=== PATIENT | male | born 1990 | race Native Hawaiian/Other Pacific Islander ===

== ENCOUNTER 2021-02-25 22:22 | Inpatient (IN) | payer OTHER ==
[~2021-02-25] VITALS: Ht 170.2 cm; Wt 90.7 kg
[2021-02-25] MEDS ORDERED: ACETAMINOPHEN 500 MG TAB PO ONE (23:15)
[2021-02-25 23:28] LABS: Basophils # (auto) 0 10 ^3/uL (0-0.2); Basophils % (auto) 0.5 % (0.0-2.0); Eosinophils # (auto) 0 10 ^3/uL (0-0.8); Eosinophils % (auto) 0.9 % (0.0-7.0); Hemoglobin 16.4 g/dL (13.5-17.5); Lymphocytes # (auto) 0.8 10 ^3/uL (0.4-5.4); Lymphocytes % (auto) 18.1 % (10.0-50.0); Mean Corpuscular Hemoglobin 31.7 pg (28.0-32.0); Mean Corpuscular Hgb Conc. 35.7 g/dL (32.0-36.0); Mean Corpuscular Volume 88.7 fL (80.0-100.0); Monocytes # (auto) 0.3 10 ^3/uL (0-1.3); Monocytes % (auto) 7.1 % (0.0-12.0); Neutrophils # (auto) 3.2 10 ^3/uL (1.6-8.6); Neutrophils % (auto) 73.4 % (37.0-80.0); Nucleated Red Blood Cells % 0.1 %; Platelet Count (auto) 166 10^3/uL (140-450); Red Blood Cells 5.19 10^6/uL (4.5-5.90); Red Cell Distribution Width 14.2 % (11.8-14.3); White Blood Cell 4.3 10^3/uL (4.4-10.8)
[2021-02-25 23:44] LABS: INR 1.02 (0.9-1.15); Partial Thromboplastin Time 36.2 sec (23.0-31.2)
[2021-02-25 23:48] LABS: Chloride 103 mmol/L (98-107); Potassium 3.6 mmol/L (3.5-5.1); Sodium 135 mmol/L (136-145)
[2021-02-25 23:53] LABS: Alanine Aminotransferase 65 U/L (16-61); Albumin 3.8 g/dL (3.4-5.0); Anion Gap 9 (5-15); Aspartate Aminotransferase 46 U/L (15-37); BUN/Creatinine Ratio 8.1; Blood Urea Nitrogen 9 mg/dL (7-18); Calcium 8.1 mg/dL (8.5-10.1); Carbon Dioxide 23 mmol/L (21-32); GFR African American 99 mL/min; GFR Non-African American 82 mL/min; Glucose 111 mg/dL (74-106)
[2021-02-25 23:57] LABS: Alkaline Phosphatase 42 U/L (45-117); Bilirubin, Total 0.4 mg/dL (0.2-1.0); Total Protein 7.9 g/dL (6.4-8.2)
[2021-02-26] MEDS ORDERED: ONDANSETRON HCL 4 MG/2 ML VIAL IV ONE (00:15)
[2021-02-26] MEDS ORDERED: NITROGLYCERIN 0.4 MG SL TAB SL PRN (02:30)
[2021-02-26] MEDS ORDERED: TEMAZEPAM 15 MG CAP PO PRN (02:30)
[2021-02-26] MEDS ORDERED: ACETAMINOPHEN 500 MG TAB PO PRN (02:30)
[2021-02-26] MEDS ORDERED: ALBUTEROL SULF HFA 90MCG INH 200DOSE IN PRN (02:30)
[2021-02-26] MEDS ORDERED: MORPHINE SULF INJ 2 MG/ML SYRINGE 1ML IV PRN (02:30)
[2021-02-26] MEDS ORDERED: ONDANSETRON HCL 4 MG/2 ML VIAL IV PRN (02:30)
[2021-02-26] MEDS ORDERED: AZITHROMYCIN 500MG/ 250ML 250 ML IV SCH (03:00)
[2021-02-26 03:02] VITALS: BP 127/78
[2021-02-26] MEDS: DexAMETHasone SOD PHOS 10MG/1ML VIAL INJ IV SCH (03:06)
[2021-02-26 04:17] LABS: CRP High Sensitivity 1.44 mg/dL (< 0.3)
[2021-02-26] MEDS: IPRATROPIUM BROMIDE HFA AER IN SCH ×5 (06:00→22:18)
[2021-02-26] MEDS: ZINC SULFATE 220mg CAP or TAB PO SCH (10:03)
[2021-02-26] MEDS: FAMOTIDINE 20 MG TAB PO SCH ×2 (10:03→21:48)
[2021-02-26] MEDS: ASCORBIC ACID 1,000 MG TAB PO SCH (10:03)
[2021-02-26] MEDS: CHOLECALCIFEROL (VITD3) 2,000 UNIT CAP/TAB PO SCH (10:04)
[2021-02-26] MEDS: ENOXAPARIN SOD 40 MG/0.4 ML SYRINGE SC SCH ×2 (10:04→21:48)
[2021-02-26] MEDS ORDERED: REMDESIVIR PER PHARMACY 0 ML IV SCH (14:15)
[2021-02-26] MEDS ORDERED: REMDESIVIR 200 MG in NS 210ml LOADING DOSE ADULT IV ONE (15:00)
[2021-02-26 16:00] VITALS: BP 129/76
[2021-02-26 20:00] VITALS: BP_SYST 129
[2021-02-26] MEDS: DOXYCYCLINE 100 MG TAB/CAP PO SCH (21:47)
[2021-02-26 22:00] VITALS: BP 129/84
[2021-02-26] MEDS: BUDESONIDE (INHALATION) 180 MCG IH IN SCH (22:18)
[2021-02-26] MEDS: ALBUTEROL SULF HFA 90MCG INH 200DOSE IN PRN (22:18)
[2021-02-27 05:00] VITALS: BP 129/69
[2021-02-27 05:37] LABS: Basophils # (auto) 0 10 ^3/uL (0-0.2); Basophils % (auto) 0.3 % (0.0-2.0); Eosinophils # (auto) 0 10 ^3/uL (0-0.8); Eosinophils % (auto) 0.1 % (0.0-7.0); Hematocrit 44.1 % (41.0-53.0); Hemoglobin 15.6 g/dL (13.5-17.5); Lymphocytes # (auto) 1.4 10 ^3/uL (0.4-5.4); Mean Corpuscular Hemoglobin 31.5 pg (28.0-32.0); Mean Corpuscular Hgb Conc. 35.5 g/dL (32.0-36.0); Mean Corpuscular Volume 88.8 fL (80.0-100.0); Monocytes # (auto) 0.3 10 ^3/uL (0-1.3); Monocytes % (auto) 4.9 % (0.0-12.0); Neutrophils # (auto) 4.7 10 ^3/uL (1.6-8.6); Neutrophils % (auto) 72.7 % (37.0-80.0); Nucleated Red Blood Cells % 0.7 %; Platelet Count (auto) 192 10^3/uL (140-450); Red Blood Cells 4.96 10^6/uL (4.5-5.90); White Blood Cell 6.5 10^3/uL (4.4-10.8)
[2021-02-27 05:54] LABS: Albumin 3.4 g/dL (3.4-5.0); Magnesium 2.2 mg/dL (1.6-2.6); Potassium 3.7 mmol/L (3.5-5.1)
[2021-02-27 05:58] LABS: BUN/Creatinine Ratio 16.5; Bilirubin, Total 0.4 mg/dL (0.2-1.0); Total Protein 7.4 g/dL (6.4-8.2)
[2021-02-27] MEDS: IPRATROPIUM BROMIDE HFA AER IN SCH ×2 (06:00→18:45)
[2021-02-27] MEDS: BUDESONIDE (INHALATION) 180 MCG IH IN SCH ×2 (06:46→18:46)
[2021-02-27] MEDS ORDERED: IVERMECTIN 3 MG TAB PO ONE (07:00)
[2021-02-27 09:00] VITALS: BP 110/61
[2021-02-27] MEDS: DexAMETHasone SOD PHOS 10MG/1ML VIAL INJ IV SCH (10:47)
[2021-02-27] MEDS: ZINC SULFATE 220mg CAP or TAB PO SCH (10:47)
[2021-02-27] MEDS: ENOXAPARIN SOD 40 MG/0.4 ML SYRINGE SC SCH ×2 (10:48→21:57)
[2021-02-27] MEDS: ASCORBIC ACID 1,000 MG TAB PO SCH (10:48)
[2021-02-27] MEDS: DOXYCYCLINE 100 MG TAB/CAP PO SCH ×2 (10:48→21:57)
[2021-02-27] MEDS: CHOLECALCIFEROL (VITD3) 2,000 UNIT CAP/TAB PO SCH (10:48)
[2021-02-27] MEDS: FAMOTIDINE 20 MG TAB PO SCH ×2 (10:48→21:57)
[2021-02-27 12:39] VITALS: BP 122/65
[2021-02-27] MEDS ORDERED: guaiFENesin-DM 100/10mg/5ml SYR PO PRN (14:30)
[2021-02-27] MEDS ORDERED: ERGOCALCIFEROL 50,000 UNIT(1.25MG) CAP PO SCH (14:30)
[2021-02-27] MEDS: REMDESIVIR 100mg 100 MG in SODIUM CHL 0.9% 230 ML IV SCH (15:28)
[2021-02-27 16:51] VITALS: BP 123/78
[2021-02-27] MEDS ORDERED: DEXT1SUS PO (18:28)
[2021-02-27] MEDS ORDERED: ACET1CAP14 PO (18:28)
[2021-02-27 20:00] VITALS: BP 124/68
[2021-02-27 22:00] VITALS: BP 124/68
[2021-02-28] VITALS (7 sets, daily range): BP systolic 123–139; BP diastolic 69–85
[2021-02-28] MEDS: BUDESONIDE (INHALATION) 180 MCG IH IN SCH ×2 (07:32→20:20)
[2021-02-28] MEDS: IPRATROPIUM BROMIDE HFA AER IN SCH ×4 (07:32→22:49)
[2021-02-28] MEDS: ALBUTEROL SULF HFA 90MCG INH 200DOSE IN PRN (07:32)
[2021-02-28] MEDS: ZINC SULFATE 220mg CAP or TAB PO SCH (09:49)
[2021-02-28] MEDS: DOXYCYCLINE 100 MG TAB/CAP PO SCH ×2 (09:49→21:37)
[2021-02-28] MEDS: FAMOTIDINE 20 MG TAB PO SCH ×2 (09:49→21:38)
[2021-02-28] MEDS: DexAMETHasone SOD PHOS 10MG/1ML VIAL INJ IV SCH (09:49)
[2021-02-28] MEDS: ENOXAPARIN SOD 40 MG/0.4 ML SYRINGE SC SCH ×2 (09:50→21:38)
[2021-02-28] MEDS: ASCORBIC ACID 1,000 MG TAB PO SCH (09:50)
[2021-02-28] MEDS: CHOLECALCIFEROL (VITD3) 2,000 UNIT CAP/TAB PO SCH (09:50)
[2021-02-28] MEDS: REMDESIVIR 100mg 100 MG in SODIUM CHL 0.9% 230 ML IV SCH (15:00)
[2021-03-01 05:00] VITALS: BP 128/74
[2021-03-01] MEDS: IPRATROPIUM BROMIDE HFA AER IN SCH ×2 (06:29→11:33)
[2021-03-01] MEDS: BUDESONIDE (INHALATION) 180 MCG IH IN SCH (06:30)
[2021-03-01] MEDS: ALBUTEROL SULF HFA 90MCG INH 200DOSE IN PRN (06:30)
[2021-03-01 08:00] VITALS: BP 123/69
[2021-03-01 09:00] VITALS: BP 117/68
[2021-03-01] MEDS: CHOLECALCIFEROL (VITD3) 2,000 UNIT CAP/TAB PO SCH (09:39)
[2021-03-01] MEDS: ZINC SULFATE 220mg CAP or TAB PO SCH (09:39)
[2021-03-01] MEDS: ENOXAPARIN SOD 40 MG/0.4 ML SYRINGE SC SCH (09:39)
[2021-03-01] MEDS: DOXYCYCLINE 100 MG TAB/CAP PO SCH (09:39)
[2021-03-01] MEDS: ASCORBIC ACID 1,000 MG TAB PO SCH (09:39)
[2021-03-01] MEDS: FAMOTIDINE 20 MG TAB PO SCH (09:39)
[2021-03-01] MEDS: DexAMETHasone SOD PHOS 10MG/1ML VIAL INJ IV SCH (09:39)
[2021-03-01 13:00] VITALS: BP 128/79
[2021-03-01] MEDS ORDERED: FAMO20TA10 PO (13:35)
[2021-03-01] MEDS ORDERED: DOXY-286 PO (13:35)
[2021-03-01] MEDS ORDERED: CHOL500023 PO (13:35)
[2021-03-01] MEDS ORDERED: ZINC220T6 PO (13:35)
[2021-03-01] MEDS ORDERED: DEX4T PO (13:35)
[2021-03-01] MEDS ORDERED: ALBUAER3 IN (13:35)
[2021-03-01] MEDS ORDERED: ASPI-378 PO (13:35)
[2021-03-01] MEDS ORDERED: ASCO10003 PO (13:35)
[2021-03-01 15:53] VITALS: BP 128/79
[2021-03-01 16:42] VITALS: BP 115/77
== END 2021-03-01 17:25 | disposition home or self-care (01) | DRG 871 ==
LOC: ER 22:23 → TELE 02-26 02:26 → TELE-EAST 02-26 15:57
PROVIDERS: ADMIT Nurse Practitioner; ATTEND Internal Medicine
PROC: XW033E5 Introduction of Remdesivir Anti-infective into Peripheral Vein, Percutaneous Approach, New Technology Group 5 (ICD-10-PCS; principal; 2021-02-26)
DX: A41.89 Other specified sepsis (principal); U07.1 COVID-19; J96.01 Acute respiratory failure with hypoxia; J12.82 Pneumonia due to coronavirus disease 2019; E55.9 Vitamin D deficiency, unspecified; E66.9 Obesity, unspecified; D89.839 Cytokine release syndrome, grade unspecified; Z68.29 Body mass index [BMI] 29.0-29.9, adult
CPT/HCPCS: 36415; 71045; 80053; 82306; 82728; 83036; 83605; 83615; 83735; 83880; 84443; 84484; 85025; 85379; 85610; 85730; 86141; 87040; 87426; 93005; 94640; 96365; 96372; 96375; G0378; J1100; J2405